=== PATIENT | female | born 1985 | race African-American/Black ===

== ENCOUNTER → 2017-10-30 | Day surgery (SDC) | payer OTHER ==
[2017-10-30 13:27] VITALS: BMI 40.4
[2017-10-30 13:41] VITALS: BP 131/84; TEMP 98.8
[2017-10-30 14:49] LABS: Amnisure Internal Control QC ACCEPTABLE (ACCEPTABLE); Amnisure Test No Membranes Rupture (No Rupture)
--- NOTE | 2017-10-30 15:20 | PDOC.LDHP ---
Labor and Delivery H&P Chief complaint: loss of fluid HPI: 31 y/o at 29w6d, patient of Dr. Atwood, presents with increased discharge and ?LOF today. Patient reports she had milky white fluid dripping down her leg today. No other large gush, no constant leaking. Denies VB, ctx, or decreased FM. ROS neg for HEENT, cv, pulm, gi, gu, neuro, psych, skin, musculoskeletal or constitutional symptoms other than mentioned above. OB History Details: 3 prior term LTCS - first for failed induction Current complications: none Past Medical History: HTN - on methyldopa. Reports all normal BPs during and hasn't been taking Rx Current medications: pre- vitamins Previous surgical history: low tranverse CS (x3) Allergies/Adverse Reactions: Allergies Allergy/AdvReac Type Severity Reaction Status Date / Time No Known Allergies Allergy Verified 03/02/14 19:17 Social history: none - Physical Exam Vital signs reviewed and normal: yes General: NAD, resting Lungs: nonlabored breathing Extremeties: no edema FHT: category 1 (140s, mod variability, + accels, no decels) [place] contractions every: none - Vaginal Exam cm dilated: 0 (SSE with small amount of white, thin discharge. No pooling, neg valsalva.) - Assessment 31 y/o at 29w6d with no e/o SROM, and VP3 negative. SSE with no pooling, negative valsalva. Bedside ultrasound with normal ILSA (16cm). status reassuring with reactive NST. - Plan -: D/c home with precautions. Advised to keep all appointments.
== END ==
LOC: L&D/OP 12:40
PROVIDERS: ATTEND Family Medicine
DX: O99.89 Other specified diseases and conditions complicating pregnancy, childbirth and the puerperium (principal); N89.8 Other specified noninflammatory disorders of vagina; Z79.899 Other long term (current) drug therapy; Z3A.29 29 weeks gestation of pregnancy
CPT/HCPCS: 84112; 87480; 87510; 87660

== ENCOUNTER 2020-01-14 13:36 | Emergency (ER) | payer OTHER ==
--- NOTE | 2020-01-14 15:05 | RAD ---
XR Chest 1 View Portable History: Dyspnea. Covid positive Comparison: None. Findings: Scattered perihilar and peripheral airspace opacities. Mild blunting left lateral costophre denis sulcus. No pneumothorax. No acute osseous abnormality. Impression: Commonly reported imaging findings of Covid-19 pneumonia.
[2020-01-14] MEDS ORDERED: Albuterol 200 PUFF (6.7GM INHALER) ONE (15:18)
--- NOTE | 2020-01-19 17:35 | EKG ---
Test Reason : Blood Pressure : / mmHG Vent. Rate : 091 BPM Atrial Rate : 091 BPM P-R Int : 178 ms QRS Dur : 084 ms QT Int : 372 ms P-R-T Axes : 048 013 -12 degrees QTc Int : 457 ms Normal sinus rhythm Cannot rule out Anterior infarct , age undetermined Abnormal ECG Confirmed by BETSEY HORNER ([id number]), editor greeting card GELACIO MERRILL ([id number]) on 01/19/2020 5:35:16 PM Referred By: Confirmed By:BETSEY Noyola
== END 2020-01-14 15:30 | disposition home or self-care (01) ==
LOC: ERS 13:36
DX: U07.1 COVID-19 (principal); I10 Essential (primary) hypertension; F41.9 Anxiety disorder, unspecified; F32.9 Major depressive disorder, single episode, unspecified; Z79.899 Other long term (current) drug therapy
CPT/HCPCS: 71045; 93005; 94664

== ENCOUNTER 2020-02-03 09:36 | Emergency (ER) | payer MEDICAID, SELFPAY | END 2020-02-03 10:00 | disposition home or self-care (01) | LOC: ERS 09:36 | DX: K02.9 Dental caries, unspecified (principal); K03.81 Cracked tooth; I10 Essential (primary) hypertension; Z86.19 Personal history of other infectious and parasitic diseases; Z79.899 Other long term (current) drug therapy | CPT/HCPCS: 99283 ==

== ENCOUNTER 2021-01-09 09:00 | Emergency (ER) | payer BC, SELFPAY ==
[2021-01-09] MEDS ORDERED: Ketorolac Tromethamine 30 MG/ML VIAL ONE (09:49)
[2021-01-09 10:09] LABS: Hemoglobin 11.8 g/dL (12.0-16.0); Mean Corpuscular HGB CONC 33.3 g/dL (32.0-36.0); Mean Corpuscular Hemoglobin 27.9 pg (27.0-31.0); Mean Corpuscular Volume 83.6 fL (78.0-98.0); Mean Platelet Volume 7.5 fL (7.4-10.4); Platelet Count 252 thou/uL (130-400); RBC Distribution Width 12.5 % (11.5-14.5); Red Blood Cell (RBC) Count 4.23 mill/uL (4.20-5.40); White Blood Cell (WBC) Count 4.7 thou/uL (4.8-10.8)
[2021-01-09 10:19] LABS: Pregnancy Test - Urine (BHCG) Negative (Negative); Pregu Control Background? CLEAR/WHITE (CLR/WHITE); Pregu Control Bar Appear? YES (CONTROL BAR); Specific Gravity 1.006 (1.002-1.036)
[2021-01-09 10:29] LABS: ALT (SGPT) 8 U/L (8-55); AST (SGOT) 12 U/L (5-34); Alkaline Phosphatase 65 U/L (40-110); Anion Gap 9 mmol/L (10-20); BUN (Urea Nitrogen) 6 mg/dL (7.0-18.7); Bilirubin, Total 0.3 mg/dL (0.2-1.2); CK (CPK) 122 U/L (29-168); Calc. Creatinine Clearance 0 mL/min (70-130); Calcium 9.5 mg/dL (7.8-10.44); Carbon Dioxide 27 mmol/L (22-29); Chloride 103 mmol/L (98-107); Globulin 3.5 g/dL (2.4-3.5); Glucose 116 mg/dL (70-105); Potassium 3.4 mmol/L (3.5-5.1); Protein, Total 7.5 g/dL (6.0-8.3); Sodium 136 mmol/L (136-145)
[2021-01-09 10:36] LABS: Band 3 % (5-11); Eosinophils 2 % (0-10); Lymphocytes 44 % (21-51); MDiff Complete? YES; Monocytes 4 % (0-10); Neutrophil 39 % (42-75); Ovalocytes SLIGHT = 2-5 cells (100X) (0-1/hpf); Platelet Morphology Comment Appears Adequate; Polychromasia SLIGHT = 2-3 cells (100X) (0-2/hpf); Reactive Lymphocytes 8 % (0-10)
[2021-01-09 11:19] LABS: Bilirubin Negative (Negative); Blood, Urine Negative (Negative); Clarity Clear (Clear); Glucose, Urine (Dipstick) Normal (Negative); Ketone, Urine Negative (Negative); Leukocyte Negative Leu/uL (Negative); Nitrite Negative (Negative); Protein, Urine (Dipstick) Negative (Neg-Trace); Specific Gravity, Urine 1.006 (1.002-1.036); Urobilinogen Normal mg/dL (Less than 2); pH, Urine 6.5 (5.0-9.0)
== END 2021-01-09 11:13 | disposition home or self-care (01) ==
LOC: ERS 09:00
DX: I10 Essential (primary) hypertension (principal); R51.9 Headache, unspecified; Z86.16 Personal history of COVID-19
CPT/HCPCS: 80053; 81003; 81025; 82550; 84484; 85025; 93005; 96374; J1885

== ENCOUNTER 2022-10-19 07:25 | Emergency (ER) | payer BC ==
[2022-10-19] MEDS ORDERED: Ketorolac Tromethamine 30 MG/ML VIAL ONE (07:54)
== END 2022-10-19 08:23 | disposition home or self-care (01) ==
LOC: ERS 07:25
DX: K08.89 Other specified disorders of teeth and supporting structures (principal); J06.9 Acute upper respiratory infection, unspecified; I10 Essential (primary) hypertension
CPT/HCPCS: 96372; 99283; J1885

== ENCOUNTER 2023-03-28 22:21 | Emergency (ER) | payer BC ==
[2023-03-28] MEDS ORDERED: Amoxicillin/Potassium Clav 875 MG TAB ONE (22:49)
[2023-03-28] MEDS ORDERED: HYDROcodone/Acetaminophen 10/325 mg Tablet ONE (22:49)
[2023-03-28] MEDS ORDERED: Ketorolac Tromethamine 30 MG (1 mL) VIAL ONE (22:49)
== END 2023-03-28 23:07 | disposition home or self-care (01) ==
LOC: ERS 22:21
DX: K04.7 Periapical abscess without sinus (principal); I10 Essential (primary) hypertension
CPT/HCPCS: 96372; 99282; J1885

== ENCOUNTER 2023-07-23 00:03 | Emergency (ER) | payer BC ==
[2023-07-23 01:11] LABS: Bacteria/HPF None Seen HPF (None Seen); Bilirubin Negative (Negative); Blood, Urine 3+ (Negative); CAUTI Indications for Culture Pelvic or flank pain; Clarity Clear (Clear); Glucose, Urine (Dipstick) Normal (Negative); Ketone, Urine Negative (Negative); Leukocyte Negative Leu/uL (Negative); Nitrite Negative (Negative); Protein, Urine (Dipstick) 10 mg/dL (Neg-Trace); RBC/HPF Greater than 50 HPF (0-3); Specific Gravity, Urine 1.021 (1.002-1.036); Squamous Epithelial 0-3 HPF (0-3); Urobilinogen Normal mg/dL (Less than 2); pH, Urine 6.5 (5.0-9.0)
[2023-07-23 01:13] LABS: Pregnancy Test - Urine (BHCG) Negative (Negative); Pregu Control Background? CLEAR/WHITE (CLR/WHITE); Pregu Control Bar Appear? YES (CONTROL BAR); Specific Gravity 1.021 (1.002-1.036)
[2023-07-23 01:14] LABS: Urine Culture Reflex No No
== END 2023-07-23 02:30 | disposition home or self-care (01) ==
LOC: ERS 00:03
DX: N94.6 Dysmenorrhea, unspecified (principal); I10 Essential (primary) hypertension
CPT/HCPCS: 81001; 81025; 99284

== ENCOUNTER 2025-01-23 07:12 | Emergency (ER) | payer BC | END 2025-01-23 09:00 | disposition home or self-care (01) | LOC: ERS 07:12 | DX: J06.9 Acute upper respiratory infection, unspecified (principal); I10 Essential (primary) hypertension | CPT/HCPCS: 71046; 87081; 87428; 87430 ==